=== PATIENT | male | born 1965 | race Two or more races ===

== ENCOUNTER 2023-02-02 15:59 | Inpatient (IN) | payer OTHER ==
[~2023-02-02] VITALS: Ht 170.2 cm; Wt 63.5 kg
[2023-02-02] MEDS ORDERED: TAMS0.4C PO (16:23)
== END 2023-02-05 15:25 | disposition home or self-care (01) | DRG 391 ==
LOC: ER 15:59 → EDBD 22:57 → MEDI 22:57
PROVIDERS: ADMIT Internal Medicine; ATTEND Internal Medicine
PROC: BW21YZZ Computerized Tomography (CT Scan) of Abdomen and Pelvis using Other Contrast (ICD-10-PCS; principal; 2023-02-02)
DX: K57.32 Diverticulitis of large intestine without perforation or abscess without bleeding (principal); A41.9 Sepsis, unspecified organism; Z20.822 Contact with and (suspected) exposure to COVID-19; N40.0 Benign prostatic hyperplasia without lower urinary tract symptoms